=== PATIENT | male | born 1965 | race Two or more races ===

== ENCOUNTER 2025-05-12 08:55 | Outpatient (CLI) | payer SELFPAY ==
[2025-05-12] MEDS ORDERED: BUPIVACAINE HCL 0.25% P/F 10 ML VIAL ONE (09:10)
[2025-05-12] MEDS ORDERED: methylPREDNISolone ACETATE 80 MG/ML VL ONE (09:11)
[2025-05-12] MEDS ORDERED: IOHEXOL 300 MG/ML 100ML BOTTLE IJ ONE (09:11)
[2025-05-12] MEDS ORDERED: LIDOCAINE 2%HCL (LOCAL ANESTH.) INJ 10ml MDV ONE (09:11)
--- NOTE | 2025-05-12 09:59 | DVH ---
XY FLUOROGUIDANCE FOR NEEDLE PLAC, XY R HIP 1V XRAY HISTORY: PRIMARY OA RIGHT HIP COMPARISON: None PROCEDURE: The risks and benefits of the procedure including infection, hemorrhage and technical failure were di scussed with the patient, who agreed to proceed. The patient was positioned supine on the fluoroscopy table. Time out was performed. The right hip was localized using fluoroscopy, and the location on the skin for needle insertion was marked. The regio n was prepped and draped using routine sterile technique. Approximately 2 cc of lidocaine was injecte d for local anesthesia. A 21 gauge spinal needle was inserted, and intra-articular location was confi rmed by injection of less than 1 cc of iodinated contrast. 1 cc of methylprednisolone (80 mg/cc) and 4 cc of Bupivacaine (0.25%) and 5 cc of 2% Lidocaine was then injected without complication. Fluorosc opy time was 0.2 minutes. DAP 5.6 The patient was informed of the temporary precautions to take following the procedure as well as of t he potential signs and symptoms which may indicate the need to contact physician, and expressed unde rstanding of this discussion. IMPRESSION: Successful steroid and anesthetic injection of the right hip.
== END 2025-05-12 17:00 | disposition home or self-care (01) ==
LOC: XYW 08:55
PROVIDERS: ATTEND Physician Assistant Medical
DX: M16.11 Unilateral primary osteoarthritis, right hip (principal)
CPT/HCPCS: 20610; 77002; J1010; J2003; J3490; Q9967; 73501